=== PATIENT | female | born 1985 | race African-American/Black ===

== ENCOUNTER 2016-09-03 04:51 | Observation (INO) | payer MEDICARE, MEDICAID ==
[2016-09-03] VITALS (8 sets, daily range): BP systolic 114–141; BP diastolic 57–67; PULSE 67–80; RESP 16–22; TEMP 98–98.2; O2SAT 96–98
[~2016-09-03 04:51] MED LIST: BUSP30TA PO; LEXA10TA PO; METO25TA3 PO; VENTAER INH
[2016-09-03] MEDS ORDERED: ONDANSETRON HCL 4 MG/2 ML VIAL IVP PRN (06:45)
[2016-09-03] MEDS ORDERED: NALOXONE HCL 0.4 MG/ML AMP IV PRN (06:45)
[2016-09-03] MEDS ORDERED: SODIUM CHLORIDE 0.9% FLUSH 10 ML FLUSH IV FLUSH PRN (06:45)
[2016-09-03] MEDS: SODIUM CHLORIDE 0.9% FLUSH 10 ML FLUSH IV FLUSH SCH ×2 (09:00→20:35)
--- NOTE | 2016-09-03 09:04 | HHI.HP ---
HPI Service [facility] Primary Care Physician Non-Staff Admission Diagnosis Diagnoses: (1) Shortness of breath (2) Pulmonary hypertension (3) JET (obstructive sleep apnea) (4) Benign hypertension (5) Asthma (6) Atypical chest pain Chief Complaint: Shortness of breath Travel History International Travel<30 Days: No Contact w/Intl Traveler <30 Da: No Traveled to Known Affected Are: No History of Present Illness 31 year-old -[place] female with a history of asthma, hypertension, morbid obesity was transferred from [facility] to [facility] for evaluation of ongoing shortness of breath with concomitant chest tightness since 08/29/16. Patient first went to the ED on 08/29/16 and had workup done including CT angiogram to rule out PE secondary to extremely being shortness of breath and dyspneic slight exertion with mildly elevated d-dimer. Patient was then diagnosed at a time with pulmonary hypertension and discharged home after all workup WERE negative. She didn't return again 09/02/16 with worsening symptoms of dyspnea me substernal chest pain which she described as constant and rated 4/10 in intensity associated with bilateral leg swelling and a mild cough production however without any febrile episode. Initial cardiac enzymes were all negative and chest x-ray although with presence of cardiomegaly has no infiltrates present. During my exam, patient's continue to complain of chest tightness as well as shortness of breath and states she can only walk 10-15 feet. She denies any GI bleed, hematuria or hemoptysis. Patient states, she run out of hydrochlorothiazide 2 weeks ago however she has been compliant with the rest of her medications Review of Systems Other 12 systems reviewed and are negative except for the ones mentioned in the history of present illness Past Family Social History Past Medical History Hypertension Asthma JET Morbid obesity Asthma Anxiety Depression Past Surgical History Reported Medications Buspirone (Buspirone HCl) 30 Mg Tab 30 Mg PO BID Lexapro (Escitalopram Oxalate) 10 Mg Tab 10 Mg PO DAILY Ventolin Hfa 18 GM Inh (Albuterol Sulfate) 90 Mcg/Act Aer 2 Puff INH Q4H PRN Metoprolol Tartrate 25 Mg Tab 25 Mg PO BID Allergies: Coded Allergies: Aspirin (Verified Allergy, Mild, HIVES, 09/03/16) Penicillin (Verified Allergy, Mild, HIVES, 09/03/16) Family History Hypertension Hyperlipidemia Throat Cancer in her dad Colon cancer in her grandmother Social History Alcohol Use: No Tobacco Use: No Substance Use: No Physical Exam Vital Signs Vital Signs Date Time Temp Pulse Resp B/P Pulse Ox O2 Delivery O2 Flow Rate FiO2 09/03/16 08:00 98.2 76 22 116/64 96 09/03/16 07:08 97 21 09/03/16 06:47 98.0 69 18 123/67 97 Physical Exam GENERAL: This is a well-nourished, well-developed obese patient, in no apparent distress. SKIN: No rashes, ecchymoses or lesions. Cool and dry. HEAD: Atraumatic. Normocephalic. No temporal or scalp tenderness. EYES: Pupils equal round and reactive. Extraocular motions intact. No scleral icterus. No injection or drainage. ENT: Nose without bleeding, purulent drainage or septal hematoma. Throat without erythema, tonsillar hypertrophy or exudate. Uvula midline. Airway patent. NECK: Trachea midline. No JVD or lymphadenopathy. Supple, nontender, no meningeal signs. CARDIOVASCULAR: Regular rate and rhythm without murmurs, gallops, or rubs. RESPIRATORY: Clear to auscultation. Breath sounds equal bilaterally. No wheezes , rales, or rhonchi. GASTROINTESTINAL: Abdomen soft, non-tender, nondistended. No hepato-splenomegaly , or palpable masses. No guarding. MUSCULOSKELETAL: Extremities without clubbing, cyanosis, or edema. No joint tenderness, effusion, or edema noted. No calf tenderness. Negative Homans sign bilaterally. NEUROLOGICAL: Awake and alert. Cranial nerves II through XII intact. Motor and sensory grossly within normal limits. Five out of 5 muscle strength in all muscle groups. Normal speech. Imaging Chest x-ray 09/02/16 with cardiomegaly and clear lungs Assessment and Plan Problem List: (1) Shortness of breath ICD Code: R06.02 Status: Acute (2) Pulmonary hypertension ICD Code: I27.2 Status: Acute (3) Atypical chest pain ICD Code: R07.89 Status: Acute (4) Asthma ICD Code: J45.909 Status: Acute (5) Benign hypertension ICD Code: I10 Status: Acute (6) JET (obstructive sleep apnea) ICD Code: G47.33 Status: Acute Assessment and Plan 31-year-old female with Atypical chest pain BNP 14 Initial cardiac enzyme negative, continue ACS rule out per protocol with serial cardiac enzyme and EKGs Check 2-D echo Pulmonary hypertension On admission patient has no hypoxemia although she complained of shortness of breath. Despite her history of asthma there was no exacerbation Patient denies any history of sickle cell disease, and CTA ruled out PE despite mildly elevated d-dimer Therefore this appears to be idiopathic pulmonary hypertension Will check 2-D echo JET Outpatient follow-up with sleep disorder specialist for a repeat sleep study Normochromic normocytic anemia Check iron study Transfuse accordingly History of asthma No exacerbation, resume DuoNeb when necessary History of anxiety Resume Lexapro DVT prophylaxis Heparin Code Status Full code Discussed Condition With Patient Roman Reddy MD September 03, 2016 09:04
[2016-09-03] MEDS ORDERED: ALBUTEROL SULFATE 90 MCG/ACT HFA 8 GM INHALER INH PRN (10:00)
[2016-09-03] MEDS ORDERED: ALPRAZolam 0.25 MG TAB PO PRN (11:00)
[2016-09-03] MEDS ORDERED: NITROGLYCERIN 0.4 MG SL 25 TABS/BTL SL PRN (11:00)
[2016-09-03 12:38] LABS: CREATINE KINASE 106 U/L (26-192)
[2016-09-03] MEDS: ACETAMINOPHEN 325 MG TAB PO PRN ×2 (13:07→18:48)
[2016-09-03 18:05] LABS: CREATINE KINASE 90 U/L (26-192)
--- NOTE | 2016-09-03 19:00 | EC ---
Study Study Date:09/03/2016 STUDY CONCLUSIONS SUMMARY LEFT VENTRICLE: The cavity size was normal. Wall thickness was increased in a pattern of moderate LVH. Systolic function was normal. The estimated ejection fraction was in the range of 60% to 65%. Wall motion was normal; there were no regional wall motion abnormalities. If LV function is below 40, please consider prescribing an ACEI or ARB or document rationale for non-use. PROCEDURE DATA STUDY STATUS: Elective. Procedure: Transthoracic echocardiography. Image quality was poor. Scanning was performed from the parasternal and apical acoustic windows. Study completion: The patient tolerated the procedure well. Transthoracic echocardiography. M-mode, complete 2D, complete spectral Doppler, and color Doppler. Height: Height: 71in. Weight: Weight: 424.1lb. Body mass index: BMI: 59.3kg/m^2. Body surface area: BSA: 2.91m^2. Patient status: Inpatient. CARDIAC ANATOMY LEFT VENTRICLE: The cavity size was normal. Wall thickness was increased in a pattern of moderate LVH. Systolic function was normal. The estimated ejection fraction was in the range of 60% to 65%. Wall motion was normal; there were no regional wall motion abnormalities. AORTIC VALVE: Trileaflet; normal thickness leaflets. Doppler: Transvalvular velocity was within the normal range. There was no stenosis. No regurgitation. AORTA: Aortic root: The aortic root was normal in size. MITRAL VALVE: Structurally normal valve. Doppler: Transvalvular velocity was within the normal range. There was no evidence for stenosis. No regurgitation. Valve area by pressure half-time: 3.49cm^2. Indexed valve area by pressure half-time: 1.2cm^2/m^2. Peak gradient: 5mm Hg (D). LEFT ATRIUM: The atrium was normal in size. RIGHT VENTRICLE: The cavity size was normal. Wall thickness was normal. PULMONIC VALVE: Doppler: Transvalvular velocity was within the normal range. There was no evidence for stenosis. No regurgitation. TRICUSPID VALVE: Structurally normal valve. Doppler: Transvalvular velocity was within the normal range. No regurgitation. PULMONARY ARTERY: The main pulmonary artery was normal-sized. Systolic pressure was within the normal range. RIGHT ATRIUM: The atrium was normal in size. PERICARDIUM: There was no pericardial effusion. SYSTEMIC VEINS: Inferior vena cava: The vessel was normal in size. Patient weight: 424.1lb _Ejection fraction:_ 65-75% _Fractional shortening:_ 32% up to 5Kg 5-11.5Kg 11.6-22.9Kg 23-45Kg 45-57Kg Aortic Root 7-13 <17 13-22 17-27 17-27 LA diam 6-13 <23 24-38 33-47 37-40 RVID 10-17 7-15 7-15 7-18 8-17 LVIDd 12-22 <32 24-38 33-47 37-40 LVPW 2-4 3-6 5-7 6-8 7-8 IVS 2-4 3-6 5-7 6-8 7-8 BASIC MEASUREMENTS ADULT NORMAL Left ventricle LV internal dimension, ED, chordal *42.5 mm 43-52 level, PLAX LV internal dimension, ES, chordal 27.9 mm 23-38 level, PLAX Fractional shortening, chordal level, 34 % >29 PLAX LV posterior wall thickness, ED 14.8 mm IVS/LVPW ratio, ED 0.98 <1.3 Ventricular septum Septal thickness, ED 14.5 mm Aortic valve Leaflet separation 19 mm 15-26 Left atrium Anterior-posterior dimension 38 mm Anterior-posterior dimension index 1.31 cm/m^2 <2.2 BASIC MEASUREMENTS ADULT NORMAL Aortic valve Leaflet separation 19 mm 15-26 Aorta Root diameter, ED 26 mm 20-37 DOPPLER MEASUREMENTS ADULT NORMAL Aortic valve Peak velocity, S 150 cm/s Mitral valve Peak E-wave velocity 108 cm/s Peak A-wave velocity 69.6 cm/s Pressure half-time 63 ms Peak gradient, D 5 mm Hg Peak E/A ratio 1.6 Valve area, pressure half-time 3.49 cm^2 Valve area index, pressure half-time 1.2 cm^2/m^2 Pulmonic valve Peak velocity, S 119 cm/s LEGEND: Mean values are shown as u=mean value. Asterisk (*) calle values outside specified normal range. Prepared and signed by Merline Ochoa [id number]
[2016-09-03 20:07] LABS: BLOOD GAS BASE EXCESS 5.4 mmol/L (-2-2); BLOOD GAS CARBOXYHEMOGLOBIN 1.4 % (0-4); BLOOD GAS HCO3 30 mmol/L (22-26); BLOOD GAS O2 HGB SATURATION 94 % (90-100); BLOOD GAS OXYGEN CONTENT 14.9 Vol % (12.0-20.0); BLOOD GAS PCO2 49 mmHg (38-42); BLOOD GAS PO2 79 mmHG (61-120); BLOOD GAS TOTAL HGB 11.2 G/DL (12.0-16.0); CRITICAL VALUE NO; FIO2 21 %; OXYGEN DEVICE ROOM AIR; TEMP CORR TO 98.6
[2016-09-03 20:08] LABS: DRAW SITE RT RADIAL; NUMBER OF ARTERIAL PUNCTURES 1; STAT NO; ULNAR PULSE PRESENT
[2016-09-03] MEDS: METOPROLOL TARTRATE 25 MG TAB PO SCH (20:35)
[2016-09-03] MEDS: busPIRone HCL 10 MG TAB PO SCH (20:37)
--- NOTE | 2016-09-04 00:28 | MB ---
cc: DEVIN SHER ARJUN DATE OF CONSULTATION: 09/03/2016 REQUESTING PHYSICIAN: Dr. Sher. REASON FOR CONSULTATION: Evaluate for shortness of breath and pulmonary hypertension. HISTORY OF PRESENT ILLNESS: Ms. Hernandez is a 31 year-old morbidly obese female with a history of bronchial asthma, sleep apnea. She has not been using any C-PAP machine. The patient was doing well until four days ago. She says she was able to do everything, but since four days ago she has had shortness of breath with walking ten feet. It is difficult for her. She also complains of pressure-like sensation in her chest, did not have any nausea or vomiting. She has dry cough. No wheezing. No fever or chills. No night sweats. She does have history of asthma, uses albuterol off and on, and has not been in the hospital for a long period of time. The patient was worked up. She had CTA of the chest done which does not show any pulmonary embolism but it shows prominence of the main pulmonary trunk which can be seen with pulmonary hypertension. LABORATORY DATA: Her CBC showed WBC count 11.1, hemoglobin 10.7, hematocrit 30.5, MCV 77, platelet count 186, sodium 138, potassium 3.7, chloride 102, CO2 29, BUN 11, creatinine 0.9, troponin less than 0.02. PAST MEDICAL HISTORY: Significant for: 1. History of sleep apnea. She does not use any C-PAP machine. 2. History of bronchial asthma. MEDICATIONS: 1. Lexapro 10 milligrams a day. 2. BuSpar 30 milligrams twice a day. 3. Metoprolol 25 milligrams twice a day. 4. Xanax 0.5 milligrams 3x a day. ALLERGIES ASPIRIN AND PENICILLIN SOCIAL HISTORY: She is single. 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 No history of smoking. No alcohol abuse. FAMILY HISTORY: She has one daughter. REVIEW OF SYSTEMS: She states until Friday she was up around and active. Weight has been stable. She denies any use of weight loss pills. She has asthma and does not take any medication. PHYSICAL EXAMINATION: Morbidly obese female, mild short of breath. VITAL SIGNS: Blood pressure is 141/60, heart rate 67, respiratory rate 20, temperature 98.1, saturation 98% on room air. HEENT: Pupils are equal and reactive to light. Oral mucosa, nasal mucosa normal. Neck: Supple. JVP not raised. Chest: No rales, no rhonchi. Abdomen: Soft, nontender. Bowel sounds are present. Extremities: No pedal edema. [employer]: Alert and oriented x3, no focal deficit. ASSESSMENT: 1. Shortness of breath which is rather acute. Cardiac etiology is being ruled out. 2. Morbid obesity. 3. Obstructive sleep apnea. 4. Bronchial asthma. 5. Need to rule out pulmonary hypertension. PLAN Will check her blood gas, pulmonary function study and echocardiogram. Her cardiac enzymes are being done. Further treatment will depend on the course in the hospital. Thank you, Dr. Sher, for this consult. Robbin Mullen MD ADA/VICKY /7:50 PM /11:51 PM
[2016-09-04 00:55] VITALS: BP 138/79; PULSE 70; RESP 19; TEMP 98; O2SAT 100
[2016-09-04] MEDS: ACETAMINOPHEN 325 MG TAB PO PRN (04:58)
[2016-09-04 05:37] LABS: AUTOMATED NEUTROPHIL # 3.3 TH/MM3 (1.8-7.7); BASOPHIL % 0.5 % (0.0-2.0); EOSINOPHIL # 0.1 TH/MM3 (0-0.4); EOSINOPHIL % 1.4 % (0.0-4.0); HEMATOCRIT 34.1 % (35.0-46.0); HEMO FLAGS DIFF FINAL; LYMPHOCYTE # 3.7 TH/MM3 (1.0-4.8); MEAN CELL VOLUME 76.3 FL (80.0-100.0); MEAN CORPUSCULAR HEMOGLOBIN 25.3 PG (27.0-34.0); MEAN CORPUSCULAR HGB CONC 33.1 % (32.0-36.0); MONO % 8.2 % (0.0-8.0); NEUT % 42.9 % (16.0-70.0); PLATELET COUNT 203 TH/MM3 (150-450); RED BLOOD COUNT 4.48 MIL/MM3 (4.00-5.30); RED CELL DISTRIBUTION WIDTH 16.6 % (11.6-17.2); WHITE BLOOD COUNT 7.8 TH/MM3 (4.0-11.0)
--- NOTE | 2016-09-04 05:49 | EKG ---
Date Performed: 09/03/2016 Time Performed: 17:55:43 PTAGE: 31 years EKG: Sinus rhythm NORMAL ECG Compared to prior tracing no significant change DOCTOR: Delfina Logan Interpretating Date/Time 09/04/2016 05:49:16
[2016-09-04 06:02] LABS: BICARBONATE 34.5 MEQ/L (21.0-32.0); POTASSIUM 3.8 MEQ/L (3.5-5.1)
--- NOTE | 2016-09-04 06:16 | EKG ---
Date Performed: 09/03/2016 Time Performed: 12:35:25 PTAGE: 31 years EKG: Sinus rhythm NORMAL ECG Compared to prior tracing no significant change DOCTOR: Delfina Logan Interpretating Date/Time 09/04/2016 06:15:51
[2016-09-04 07:12] VITALS: BP 115/81; PULSE 63; RESP 20; TEMP 98.2; O2SAT 99
--- NOTE | 2016-09-04 08:22 | HHI.PR ---
Subjective Remarks Follow-up questionable pulmonary hypertension/atypical chest pain/shortness of breath 09/04/16-patient seen and examined; 2-D echo ruled out pulmonary Hypertension. She reports some improvement of shortness of breath and denies any significant chest pain Objective Vitals Vital Signs Date Time Temp Pulse Resp B/P Pulse Ox O2 Delivery O2 Flow Rate FiO2 09/04/16 07:12 98.2 63 20 115/81 99 09/04/16 00:55 98.0 70 19 138/79 100 09/03/16 21:07 78 09/03/16 19:28 97 09/03/16 19:24 98.1 67 20 141/64 98 09/03/16 15:25 98.0 74 22 124/57 97 09/03/16 11:25 98.2 80 16 114/59 96 Result Diagram: 09/04/16 0435 09/04/16 0435 Objective Remarks GENERAL: obese patient in NAD SKIN: Warm and dry. HEAD: Normocephalic. EYES: No scleral icterus. No injection or drainage. NECK: Supple, trachea midline. No JVD or lymphadenopathy. CARDIOVASCULAR: Regular rate and rhythm without murmurs, gallops, or rubs. RESPIRATORY: Breath sounds equal bilaterally. No accessory muscle use. GASTROINTESTINAL: Abdomen soft, non-tender, nondistended. MUSCULOSKELETAL: No cyanosis, or edema. BACK: Nontender without obvious deformity. No CVA tenderness. A/P Problem List: (1) Shortness of breath ICD Code: R06.02 Status: Acute (2) Atypical chest pain ICD Code: R07.89 Status: Acute (3) Asthma ICD Code: J45.909 Status: Acute (4) Benign hypertension ICD Code: I10 Status: Acute (5) JET (obstructive sleep apnea) ICD Code: G47.33 Status: Acute Assessment and Plan 31-year-old female with Atypical chest pain-resolved BNP 14 ACS ruled out per protocol with serial cardiac enzyme and EKGs Pulmonary hypertension? 2-D echo with finding of normal pulmonary artery size with normal Systolic pressure was within the normal range ruling out pulmonary hypertension ABG noted Benign hypertension Continue with Lopressor 25 mg by mouth twice a day JET Outpatient follow-up with sleep disorder specialist for a repeat sleep study Normochromic normocytic anemia Stable History of asthma No exacerbation,continue DuoNeb when necessary Appreciate input from pulmonary medicine History of anxiety Continue Lexapro DVT prophylaxis Heparin Discharge Planning Discharge patient to home Condition on discharge: Improved Regular Diet as tolerated Ad Rosalinda activity Rx written:see EMR Follow-up with primary care physician in 1 week Roman Reddy MD September 04, 2016 08:22
[2016-09-04] MEDS ORDERED: ESCITALOPRAM OXALATE 10 MG TAB PO SCH (09:00)
[2016-09-04] MEDS: METOPROLOL TARTRATE 25 MG TAB PO SCH (09:00)
[2016-09-04] MEDS: SODIUM CHLORIDE 0.9% FLUSH 10 ML FLUSH IV FLUSH SCH (10:07)
[2016-09-04] MEDS: busPIRone HCL 10 MG TAB PO SCH (10:08)
[2016-09-10] MEDS ORDERED: PERC5TAB12 PO (00:35)
[2016-09-10] MEDS ORDERED: PROM25TA5 PO (00:35)
[2016-09-10] MEDS ORDERED: CIPR-9 PO (00:35)
[2016-09-27] MEDS ORDERED: OSEL75 PO (01:13)
[2016-09-27] MEDS ORDERED: BACT800T5 PO (01:13)
[2016-09-27] MEDS ORDERED: PRED20 PO (01:15)
== END 2016-09-04 13:29 | disposition home or self-care (01) ==
LOC: NEDDLT 06:23 → NEPGCP 06:33
PROVIDERS: ADMIT Hospitalist; ATTEND Hospitalist
DX: R06.02 Shortness of breath (principal); R07.89 Other chest pain; G47.33 Obstructive sleep apnea (adult) (pediatric); I10 Essential (primary) hypertension; J45.909 Unspecified asthma, uncomplicated; F41.9 Anxiety disorder, unspecified; D64.9 Anemia, unspecified; F32.9 Major depressive disorder, single episode, unspecified; E66.01 Morbid (severe) obesity due to excess calories; Z68.43 Body mass index [BMI] 50.0-59.9, adult; Z88.0 Allergy status to penicillin; Z88.6 Allergy status to analgesic agent
CPT/HCPCS: 36600; 71010; 80048; 80053; 81003; 82550; 82805; 83880; 84484; 84702; 85025; 85379; 93005; 93306; 96374; 96375; 99285; G0378; J1170; J1200; J1940; 99281